=== PATIENT | female | born 1995 | race Asian ===

== ENCOUNTER 2022-08-30 22:39 | Emergency (ER) | payer OTHER ==
[2022-08-31] MEDS ORDERED: Amoxicillin/Potassium Clav 875 MG TAB ONE (00:01)
[2022-08-31] MEDS ORDERED: Bacitracin 1 PK ONE (00:02)
== END 2022-08-31 00:12 | disposition home or self-care (01) ==
LOC: CSHERS 22:39
DX: S21.111A Laceration without foreign body of right front wall of thorax without penetration into thoracic cavity, initial encounter (principal); W54.0XXA Bitten by dog, initial encounter
CPT/HCPCS: 99283